=== PATIENT | male | born 1980 | race American Indian/Alaskan Native ===

== ENCOUNTER 2020-09-07 23:31 | Emergency (ER) | payer SELFPAY ==
[2020-09-08] MEDS ORDERED: ASPIRIN 325 MG TAB PO ONE (00:20)
--- NOTE | 2020-09-08 00:55 | XRay Report ---
CHEST 1 VIEW INDICATION: Chest Pain. COMPARISON: None. FINDINGS: Support devices: None. Heart: Normal. Lungs/Pleura: No acute pulmonary or pleural findings. IMPRESSION: 1. No acute findings. Signer Name: Stevan Anglin MD Signed: 09/08/2020 12:51 AM Workstation Name: [id number]
[2020-09-08 01:08] LABS: Basophils % (Auto) 0.2 % (0.0-1.8); Eosinophils # (Auto) 0.1 K/mm3 (0.0-0.4); Eosinophils % (Auto) 0.6 % (0.0-4.3); Hematocrit 45.9 % (35.5-45.6); Hemoglobin 15.6 gm/dl (11.8-15.2); Lymphocytes # (Auto) 1.7 K/mm3 (1.2-5.4); Lymphocytes % (Auto) 19.5 % (13.4-35.0); Mean Corpuscular HGB Conc 34 % (32-34); Mean Corpuscular Volume 82 fl (84-94); Monocytes # (Auto) 0.6 K/mm3 (0.0-0.8); Monocytes % (Auto) 7.1 % (0.0-7.3); Platelet Count 275 K/mm3 (140-440); Red Blood Count 5.58 M/mm3 (3.65-5.03); Red Cell Distribution Width 14.9 % (13.2-15.2)
[2020-09-08 01:20] LABS: BUN/Creatinine Ratio 7; Blood Urea Nitrogen 6 mg/dL (9-20); Calcium 9.8 mg/dL (8.4-10.2); Hemolysis Index 5
[2020-09-08] MEDS ORDERED: KETOROLAC 60 MG/2 ML INJ IM ONE (04:07)
--- NOTE | 2020-09-08 04:26 | Emergency Department Report ---
ED Chest Pain HPI - General Chief Complaint: Chest Pain Stated Complaint: CHEST PAIN Time Seen by Provider: 09/08/20 04:00 Source: patient, EMS, old records reviewed (No previous [facility] visit under this name) Mode of arrival: Ambulatory Limitations: No Limitations - History of Present Illness Initial Comments: 39-year-old male smoker presents to the hospital complains of chest pain x1 month. Pain is sharp and intermittent. Worse with deep inspiration. He denies shortness of breath, recent travel, calf tenderness, or leg edema. Patient is a somewhat difficult historian. He seems annoyed by the questions and it requires repeated questioning to receive a short response/answer. Apparently patient provided a different name and multiple different birthdates after registration process. He presents with elevated blood pressure and tachycardia. He says his mother has a history of heart problems but he does not know the details. He is not currently taking any medications for pain and has not sought medical care for chest pain. He states he thinks he has a history of elevated cholesterol but is unclear about the nature of the diagnosis. Severity scale (0 -10): 7 - Related Data Previous Rx's Medication Instructions Recorded Last Taken Type Ibuprofen [Motrin] 800 mg PO Q8HR PRN #20 tablet 09/08/20 Unknown Rx amLODIPine 5 mg PO ONCE #30 tablet 09/08/20 Unknown Rx Allergies Allergy/AdvReac Type Severity Reaction Status Date / Time No Known Allergies Allergy Verified 09/08/20 04:06 Heart Score - HEART Score History: Slightly suspicious EKG: Normal Age: < 45 Risk factors: 1-2 risk factors Troponin: < normal limit HEART Score: 1 ED Review of Systems ROS: Stated complaint: CHEST PAIN Other details as noted in HPI Comment: All other systems reviewed and negative ED Past Medical Hx - Past Medical History Previous Medical History?: Yes Additional medical history: high cholesterol - Surgical History Past Surgical History?: No - Social History Smoking Status: Never Smoker Substance Use Type: None - Medications Home Medications: Home Medications Medication Instructions Recorded Confirmed Last Taken Type Ibuprofen [Motrin] 800 mg PO Q8HR PRN #20 tablet 09/08/20 Unknown Rx amLODIPine 5 mg PO ONCE #30 tablet 09/08/20 Unknown Rx ED Physical Exam - General Limitations: No Limitations - Other Other exam information: General: No acute distress Head: Atraumatic Eyes: normal appearance ENT: Moist mucous membranes, ? white powder vs film to lips Neck: Normal appearance, no midline tenderness Chest: Clear to auscultation bilaterally, no tachypnea CV: mild tachycardia regular rate, left chest wall tenderness Abdomen: Soft, normal bowel sounds, nontender, nondistended, no rebound or guarding Back: Normal inspection Extremity: Normal inspection, full range of motion Neuro: Alert O x 3, no facial asymmetry, speech clear, no gross motor sensory deficit Psych: Mumbling response to answers, short responses, annoyed with questions Skin: No rash ED Course Vital Signs 09/08/20 09/08/20 09/08/20 00:08 04:02 04:04 Temperature 98.7 F Pulse Rate 109 H 98 H 97 H Respiratory 18 20 16 Rate Blood Pressure 157/105 Blood Pressure 163/108 [Left] O2 Sat by Pulse 97 98 Oximetry 09/08/20 09/08/20 09/08/20 04:11 04:16 04:30 Temperature 98.5 F Pulse Rate Respiratory 11 L Rate Blood Pressure 163/108 166/80 Blood Pressure [Left] O2 Sat by Pulse 98 95 Oximetry 09/08/20 09/08/20 09/08/20 04:45 05:00 05:28 Temperature Pulse Rate 110 H Respiratory Rate Blood Pressure 169/94 153/93 151/103 Blood Pressure [Left] O2 Sat by Pulse 96 95 Oximetry MANISHA score - Manisha Score Age > 65: (0) No Aspirin use within the Past 7 Days: (0) No 3 or more CAD Risk Factors: (0) No 2 or more Angina events in past 24 hrs: (0) No Known CAD with more than 50% Stenosis: (0) No Elevated Cardiac Markers: (0) No ST Deviation Greater than 0.5mm: (0) No MANISHA Score: 0 ED Medical Decision Making - Lab Data Result diagrams: 09/08/20 00:45 09/08/20 00:45 Lab Results 09/08/20 09/08/20 09/08/20 Range/Units 00:45 00:45 03:54 WBC 8.9 (4.5-11.0) K/mm3 RBC 5.58 H (3.65-5.03) M/mm3 Hgb 15.6 H (11.8-15.2) gm/dl Hct 45.9 H (35.5-45.6) % MCV 82 L (84-94) fl MCH 28 (28-32) pg MCHC 34 (32-34) % RDW 14.9 (13.2-15.2) % Plt Count 275 (140-440) K/mm3 Lymph % (Auto) 19.5 (13.4-35.0) % Sawyer % (Auto) 7.1 (0.0-7.3) % Eos % (Auto) 0.6 (0.0-4.3) % Baso % (Auto) 0.2 (0.0-1.8) % Lymph # (Auto) 1.7 (1.2-5.4) K/mm3 Sawyer # (Auto) 0.6 (0.0-0.8) K/mm3 Eos # (Auto) 0.1 (0.0-0.4) K/mm3 Baso # (Auto) 0.0 (0.0-0.1) K/mm3 Seg Neutrophils % 72.6 H (40.0-70.0) % Seg Neutrophils # 6.5 (1.8-7.7) K/mm3 D-Dimer (0-234) ng/mlDDU Sodium 137 (137-145) mmol/L Potassium 3.1 L (3.6-5.0) mmol/L Chloride 96.4 L (98-107) mmol/L Carbon Dioxide 26 (22-30) mmol/L Anion Gap 18 mmol/L BUN 6 L (9-20) mg/dL Creatinine 0.9 (0.8-1.3) mg/dL Estimated GFR > 60 ml/min BUN/Creatinine Ratio 7 % Glucose 99 (75-100) mg/dL Calcium 9.8 (8.4-10.2) mg/dL Magnesium (1.7-2.3) mg/dL Troponin T < 0.010 < 0.010 (0.00-0.029) ng/mL 09/08/20 09/08/20 Range/Units 04:13 04:19 WBC (4.5-11.0) K/mm3 RBC (3.65-5.03) M/mm3 Hgb (11.8-15.2) gm/dl Hct (35.5-45.6) % MCV (84-94) fl MCH (28-32) pg MCHC (32-34) % RDW (13.2-15.2) % Plt Count (140-440) K/mm3 Lymph % (Auto) (13.4-35.0) % Sawyer % (Auto) (0.0-7.3) % Eos % (Auto) (0.0-4.3) % Baso % (Auto) (0.0-1.8) % Lymph # (Auto) (1.2-5.4) K/mm3 Sawyer # (Auto) (0.0-0.8) K/mm3 Eos # (Auto) (0.0-0.4) K/mm3 Baso # (Auto) (0.0-0.1) K/mm3 Seg Neutrophils % (40.0-70.0) % Seg Neutrophils # (1.8-7.7) K/mm3 D-Dimer 95.78 (0-234) ng/mlDDU Sodium (137-145) mmol/L Potassium (3.6-5.0) mmol/L Chloride (98-107) mmol/L Carbon Dioxide (22-30) mmol/L Anion Gap mmol/L BUN (9-20) mg/dL Creatinine (0.8-1.3) mg/dL Estimated GFR ml/min BUN/Creatinine Ratio % Glucose (75-100) mg/dL Calcium (8.4-10.2) mg/dL Magnesium 1.90 (1.7-2.3) mg/dL Troponin T (0.00-0.029) ng/mL - EKG Data -: EKG Interpreted by Md EKG shows normal: sinus rhythm Rate: tachycardia (104) - EKG Data When compared to previous EKG there are: previous EKG unavailable - Radiology Data Radiology results: report reviewed CHEST 1 VIEW INDICATION: Chest Pain. COMPARISON: None. FINDINGS: Support devices: None. Heart: Normal. Lungs/Pleura: No acute pulmonary or pleural findings. IMPRESSION: 1. No acute findings. - Medical Decision Making Patient presents to the hospital atypical left-sided sharp chest pain x1 month duration without shortness of breath or PE/DVT risk factors. D-dimer is negative. Pulse ox is normal. Mild tachycardia noted. trop neg x2 heart score 2 and ekg without ischmia x 2. Normal cxr. Patient exhibiting strange behavior with the white substance on his lips. Unfortunately unable obtain a UDS since he did not provide a urine. Patient does have mild elevated blood pressure and will be started on Norvasc for hypertension. Patient received Toradol in the ED for pain and p.o. potassium for mild hypokalemia. Will initiate Norvasc for elevated blood pressure, Motrin for pain, and outpatient follow-up encouraged Recommended to the patient about his discharge diagnosis and plan for follow-up. He immediately was fidgeting as if he was hiding something on the covers. When asked what he was doing he said "nothing stomach my stomach is just cramping." When told he was being discharge he was frustrated asking what time it is and if he can stay longer and he wanted something forstomach cramping which he has not mentioned up into this point. Patient did not have any abdominal tenderness on initial examination. For some reason he appears to want to stay in the ED until a specific time. He will be discharged home and encouraged to take the medication as prescribed. Pt has been exhibiting strange behavior thought ed stay Critical Care Time: No Critical care attestation.: If time is entered above; I have spent that time in minutes in the direct care of this critically ill patient, excluding procedure time. ED Disposition Clinical Impression: Atypical chest pain, Hypertension, Hypokalemia Disposition: TO HOME OR SELFCARE Is pt being admited?: No Does the pt Need Aspirin: No Condition: Stable Instructions: Hypokalemia, Nonspecific Chest Pain, Adult, Managing Your Hypertension, Chest Pain (ED), Hypertension (ED) Additional Instructions: Take the medication as prescribed. Follow-up with your doctor or doctor/clinic provided. Return if symptoms worsen as indicated by your discharge instructions. Prescriptions: amLODIPine 5 mg PO ONCE #30 tablet Ibuprofen [Motrin] 800 mg PO Q8HR PRN #20 tablet PRN Reason: Pain , Severe (7-10) Referrals: LYNETTE GOLDSTEIN MD [Primary Care Provider] - 3-5 Days [facility] [Provider Group] - 3-5 Days FELIPA GONZALES MD [Staff Physician] - 3-5 Days Time of Disposition: 05:41
[2020-09-08] MEDS ORDERED: POTASSIUM CHLORIDE ER 20 MEQ TAB PO ONE (05:23)
[2020-09-08] MEDS ORDERED: amLODIPine 5 MG TAB PO ONE (05:25)
[2020-09-08 05:31] VITALS: BP 151/103
== END 2020-09-08 06:07 | disposition home or self-care (01) ==
LOC: ED 23:31
DX: R07.89 Other chest pain (principal); I10 Essential (primary) hypertension; E87.6 Hypokalemia; E78.00 Pure hypercholesterolemia, unspecified
CPT/HCPCS: 36415; 71045; 80048; 83735; 84484; 85025; 85379; 93005; 96372; 99284; J1885